=== PATIENT | female | born 1990 | race African-American/Black ===

== ENCOUNTER 2018-04-09 08:57 | Emergency (ER) | payer MEDICAID ==
[~2018-04-09] VITALS: Ht 152.4 cm; Wt 90.7 kg
--- NOTE | 2018-04-09 10:43 | NUR ---
Patient discharged to home in stable conditon. Written and verbal after care instructions given. Patient verbalizes understanding of instructions.PT WALKS IN STEADY GAIT.
== END 2018-04-09 10:45 | disposition home or self-care (01) ==
LOC: ER 08:57
DX: M23.91 Unspecified internal derangement of right knee (principal); E11.9 Type 2 diabetes mellitus without complications; Z88.8 Allergy status to other drugs, medicaments and biological substances
CPT/HCPCS: 29505; 73564; 99284; A4663